=== PATIENT | male | born 1990 | race Caucasian/White ===

== ENCOUNTER 2018-05-14 15:08 | Outpatient (CLI) | payer OTHER ==
[2018-05-14 18:55] LABS: BASOPHILS % (AUTO) 0.6 %; EOSINOPHILS # (AUTO) 0.1 10^3/uL (0.0-0.7); EOSINOPHILS % (AUTO) 1.2 %; HGB - HEMOGLOBIN 15.9 g/dL (14.0-18.0); LYMPHOCYTES # (AUTO) 2.4 10^3/uL (1.5-3.5); LYMPHOCYTES % (AUTO) 31.7 %; MEAN CORPUSCULAR HEMOGLOBIN 29.8 pg (27.0-31.0); MEAN CORPUSCULAR VOLUME 87.8 fL (80.0-94.0); MEAN PLATELET VOLUME 9.1 fL (7.4-11.4); MONOCYTES # (AUTO) 0.5 10^3/uL (0.0-1.0); MONOCYTES % (AUTO) 7.1 %; NEUTROPHILS # (AUTO) 4.6 10^3/uL (1.5-6.6); NEUTROPHILS % (AUTO) 59.4 %; PLT - PLATELET COUNT 231 10^3/uL (130-450); RED BLOOD COUNT 5.32 10^6/uL (4.70-6.10); WHITE BLOOD COUNT 7.7 x10^3/uL (4.8-10.8)
[2018-05-14 19:03] LABS: CALCIUM 10.2 mg/dL (8.5-10.3); CREATININE 0.8 mg/dL (0.6-1.2)
== END 2018-05-14 23:59 ==
LOC: LAB.N 15:08
PROVIDERS: ATTEND Physician Assistant Medical
DX: Z00.00 Encounter for general adult medical examination without abnormal findings (principal)
CPT/HCPCS: 36415; 80048; 84443; 85025

== ENCOUNTER 2019-03-10 07:48 | Emergency (ER) | payer OTHER ==
--- NOTE | 2019-03-10 09:45 | ED Physician Documentation ---
PD HPI URI - Stated complaint Stated Complaint: SINUS PRESSURE/SORE THROAT - Chief complaint Chief Complaint: Heent - History obtained from History obtained from: Patient - History of Present Illness Timing - onset: How many days ago (1) Timing duration: Days (1) Timing details: Abrupt onset Severity Comments: moderate Associated symptoms: Ear pain, Nasal congestion, Sinus pain, Sore throat, Dry cough. No: Fever, Chills, Sweats, Rhinorrhea, Swollen nodes, Productive cough, Chest pain, Dyspnea, NVD Contributing factors: COPD / asthma (hx of asthma) Improves by: Nothing Worsened by: Other (nothing) Similar symptoms before: Has not had sx before Recently seen: Not recently seen - Treatment prior to arrival Treatment prior to arrival: took mucinex last week Review of Systems Ten Systems: 10 systems reviewed and negative Constitutional: denies: Fever, Chills Eyes: reports: Reviewed and negative Ears: reports: Other (ear fullness) Nose: reports: Congestion, Sinus pressure / pain Cardiac: reports: Reviewed and negative Respiratory: reports: Reviewed and negative GI: reports: Reviewed and negative : reports: Reviewed and negative Musculoskeletal: reports: Reviewed and negative Neurologic: reports: Reviewed and negative Immunocompromised: reports: Reviewed and negative PD PAST MEDICAL HISTORY - Past Medical History Past Medical History: No - Past Surgical History Past Surgical History: Yes HEENT: Other - Present Medications Home Medications: Ambulatory Orders Medication Instructions Recorded Confirmed Fluticasone [Flonase] 1 sprays DANIELLE BID #1 bottle 03/10/19 Pseudoephedrine HCl [Sudafed 12 120 mg PO BID PRN #20 tablet.er 03/10/19 Hour] - Allergies Allergies/Adverse Reactions: Allergies Allergy/AdvReac Type Severity Reaction Status Date / Time No Known Drug Allergies Allergy Verified 03/10/19 08:14 - Social History Does the pt smoke?: Yes Smoking Status: Former smoker Does the pt drink ETOH?: Yes Does the pt have substance abuse?: No - Immunizations Immunizations are current?: Yes PD ED PE NORMAL - Vitals Vital signs reviewed: Yes - General General: Alert and oriented X 3, No acute distress, Well developed/nourished - HEENT HEENT: Atraumatic - Neck Neck: Supple, no meningeal sign - Cardiac Cardiac: RRR, No gallop, No rub, Strong equal pulses - Respiratory Respiratory: No respiratory distress, Clear bilaterally - Abdomen Abdomen: Soft, Non tender, Non distended - Male Male : Deferred - Rectal Rectal: Deferred - Derm Derm: Normal color, Warm and dry - Extremities Extremities: No deformity - Neuro Neuro: Alert and oriented X 3 Eye Opening: Spontaneous Motor: Obeys Commands Verbal: Oriented GCS Score: 15 - Psych Psych: Normal mood, Normal affect PD ED PE EXPANDED - HEENT HEENT: Ears normal, Right maxillary sinus TTP, Left maxillary sinus TTP, Nasal congestion. No: R TM red, R TM dull, R TM retracted, R TM loss of landmarks, L TM red, L TM dull, L TM bulging, L TM retracted, L TM loss of landmarks Results - Vitals Vitals: Vital Signs - 24 hr 03/10/19 08:15 Temperature 37.1 C Heart Rate 72 Respiratory 15 Rate Blood Pressure 136/67 H O2 Saturation 99 Oxygen O2 Source Room air PD MEDICAL DECISION MAKING - ED course Complexity details: considered differential, d/w patient ED course: ddx- uri, allergic rhinitis, sinusitis -viral vs bacterial, flu 28 y/o M well appearing with symptoms of sinusitis, no fever, likely viral. Will initiate supportive care with nasal decongestants, ibuprofen as needed for headache and outpt f/u Departure - Departure Disposition: 01 Home, Self Care Clinical Impression: Sinusitis Qualifiers: Sinusitis location: ethmoidal Chronicity: acute Recurrence: not specified as recurrent Qualified Code(s): J01.20 - Acute ethmoidal sinusitis, unspecified Condition: Stable Record reviewed to determine appropriate education?: Yes Instructions: ED Sinusitis No Abx Follow-Up: your, doctor [Other] - As Needed Prescriptions: Fluticasone [Flonase] 1 sprays DANIELLE BID #1 bottle Pseudoephedrine HCl [Sudafed 12 Hour] 120 mg PO BID PRN #20 tablet.er PRN Reason: Nasal Congestion
[2019-03-10 09:53] VITALS: BP 121/69
== END 2019-03-10 09:59 | disposition home or self-care (01) ==
LOC: ED 07:48
DX: J01.20 Acute ethmoidal sinusitis, unspecified (principal); Z87.891 Personal history of nicotine dependence
CPT/HCPCS: 99282; 99284

== ENCOUNTER 2019-05-17 17:50 | Emergency (ER) | payer OTHER ==
[2019-05-17 18:23] LABS: RAPID STREP SCREEN POSITIVE (Negative)
[2019-05-17] MEDS ORDERED: CHERRY SYRUP 10 ML UDC PO ONE (18:37)
[2019-05-17] MEDS ORDERED: PENICILLIN VK 250 MG TABLET PO STA (18:37)
[2019-05-17] MEDS ORDERED: DEXAMETHASONE 10 MG/ML VIAL PO STA (18:37)
--- NOTE | 2019-05-17 18:38 | ED Physician Documentation ---
History of Present Illness - Stated complaint Stated Complaint: THROAT SWELLING, BUMPS ON TONGUE - Chief complaint Chief Complaint: Heent - History obtained from History obtained from: Patient - History of Present Illness Timing: How many weeks ago Pain level max: 6 Pain level now: 5 - Additonal information Additional information: 28-year-old male with a sore throat for the past 2 weeks. Worse with swallowing and better with rest. Subjective fevers. Mild cough. No rhinorrhea or congestion. No nausea or vomiting. No abdominal pain. Review of Systems Constitutional: reports: Fever Cardiac: denies: Chest pain / pressure Respiratory: denies: Cough GI: denies: Vomiting, Diarrhea Skin: denies: Rash Musculoskeletal: denies: Neck pain, Back pain PD PAST MEDICAL HISTORY - Past Medical History Past Medical History: No - Past Surgical History Past Surgical History: Yes HEENT: Other - Present Medications Home Medications: Ambulatory Orders Medication Instructions Recorded Confirmed Fluticasone [Flonase] 1 sprays DANIELLE BID #1 bottle 03/10/19 Pseudoephedrine HCl [Sudafed 12 120 mg PO BID PRN #20 tablet.er 03/10/19 Hour] Ibuprofen [Motrin] 800 mg PO Q8H PRN #30 tablet 05/17/19 Penicillin V Potassium 500 mg PO Q6HR #40 tablet 05/17/19 - Allergies Allergies/Adverse Reactions: Allergies Allergy/AdvReac Type Severity Reaction Status Date / Time No Known Drug Allergies Allergy Verified 05/17/19 18:02 - Social History Does the pt smoke?: Yes Smoking Status: Current every day smoker Does the pt drink ETOH?: Yes Does the pt have substance abuse?: No - Immunizations Immunizations are current?: Yes PD ED PE NORMAL - Vitals Vital signs reviewed: Yes - General General: Alert and oriented X 3, No acute distress - HEENT HEENT: PERRL, Ears normal, Moist mucous membranes, Other (Posterior pharyngeal erythema with tonsillar exudates. Uvula midline. Normal phonation. No trismus.) - Neck Neck: Supple, no meningeal sign, Other (Shotty anterior lymphadenopathy) - Cardiac Cardiac: RRR, Strong equal pulses - Respiratory Respiratory: No respiratory distress, Clear bilaterally - Abdomen Abdomen: Soft, Non tender, Non distended - Derm Derm: Warm and dry, No rash - Neuro Neuro: Alert and oriented X 3 - Psych Psych: Normal mood, Normal affect Results - Vitals Vitals: Vital Signs - 24 hr 05/17/19 18:02 Temperature 37 C Heart Rate 86 Respiratory 18 Rate Blood Pressure 114/72 O2 Saturation 98 Oxygen O2 Source Room air - Labs Labs: Laboratory Tests 05/17/19 18:10 Group A Strep Rapid POSITIVE H PD MEDICAL DECISION MAKING - ED course Complexity details: reviewed results, re-evaluated patient, considered differential, d/w patient ED course: Patient with strep pharyngitis. Given dexamethasone will place on penicillin for home. No evidence of retropharyngeal or peritonsillar abscess. Patient counseled regarding signs and symptoms for which I believe and urgent re- evaluation would be necessary. Patient with good understanding of and agreement to plan and is comfortable going home at this time This document was made in part using voice recognition software. While efforts are made to proofread this document, sound alike and grammatical errors may occur. Departure - Departure Disposition: 01 Home, Self Care Clinical Impression: Strep pharyngitis Condition: Good Instructions: ED Strep Pharyngitis Conf Follow-Up: your,doctor in 1 week if not better [Other] Prescriptions: Penicillin V Potassium 500 mg PO Q6HR #40 tablet Ibuprofen [Motrin] 800 mg PO Q8H PRN #30 tablet PRN Reason: PAIN &/OR FEVER Comments: Take all antibiotics until gone. Return if you worsen. Follow-up with your doctor for further care.
[2019-05-17 18:49] VITALS: BP 114/72
== END 2019-05-17 18:51 | disposition home or self-care (01) ==
LOC: ED 17:50
DX: J02.0 Streptococcal pharyngitis (principal); F17.200 Nicotine dependence, unspecified, uncomplicated
CPT/HCPCS: 87430; 99283; 99284; A9270